=== PATIENT | female | born 1955 | race Caucasian/White ===

== ENCOUNTER 2022-07-23 07:36 | Emergency (ER) | payer OTHER, SELFPAY ==
[2022-07-23] VITALS (10 sets, daily range): BP systolic 126–159; BP diastolic 59–73; PULSE 60–74; RESP 16–24; TEMP 36.6; O2SAT 99–100; BMI 37.7
--- NOTE | 2022-07-23 08:01 | DI.CT.S_ITS ---
PROCEDURE: CT ANGIO HEAD AND NECK INDICATIONS: hx coil, balance, confusion x>24 hours TECHNIQUE: Pre-contrast 4.5 mm thick sections acquired from the foramen magnum to the vertex. After the administration of intravenous contrast, 1 mm thick sections acquired from the aortic arch through the [place]. Post-contrast 4.5 mm thick sections then re-acquired from the foramen magnum to the vertex. 3-dimensional kguowvt-lqcvxogpw-yoxyxhtfjp (MIP) and/or volume rendering reformats were acquired of the central intracranial vasculature and neck separately. For radiation dose reduction, the following was used: automated exposure control, adjustment of mA and/or kV according to patient size. COMPARISON: None. FINDINGS: Image quality: Excellent. BRAIN: CSF spaces: Ventricles are normal in size and shape. Basal cisterns are patent. No extra-axial fluid collections. Brain: No midline shift. No acute intracranial hemorrhage mass effect. Small hypodensity in the right basal ganglia is most likely a small subacute or chronic lacunar infarct. Additional small hypoattenuating foci are seen in the inferior right frontal lobe and posterior right periventricular white matter, possibly rib representing prior insult or chronic microvascular ischemic changes. Additional fdrf-av-iautiorf hypodensities in the periventricular and subcortical white matter are most likely related to chronic microvascular ischemic changes. There is relatively mild cerebral volume loss for age. Skull and face: Calvarium and facial bones appear intact, without suspicious lesions. Orbits appear normal. Sinuses: Sinuses and mastoids are clear. HEAD CT ANGIOGRAPHY: Anterior circulation: Intracranial internal carotid arteries demonstrate mild atherosclerotic calcifications without hemodynamically significant stenosis. The flow within the paired anterior cerebral arteries is normal and symmetric. Streak artifact is seen in the anterior temporal convexity related to presumed embolization coils. Nonspecific calcifications are seen along the right MCA near the embolization coils. The flow within the middle cerebral arteries is normal and symmetric. The anterior communicating artery is seen. No aneurysms are seen. Posterior circulation: Visualized portions of the vertebral arteries demonstrate normal caliber, and join to form a normal appearing basilar artery. Flow within the posterior cerebral arteries is normal and symmetric. No aneurysms are seen. NECK CT ANGIOGRAPHY: Carotid system: The great vessels demonstrate a conventional anatomy as they arise from the aortic arch. The origins of the common carotid arteries appear patent. The common carotid arteries demonstrate normal caliber and courses. Mild atherosclerotic calcifications are seen at the left carotid bifurcation without significant stenosis. The right carotid bifurcation is patent. The internal carotid arteries demonstrate normal calibers and courses. Posterior circulation: The origins of the vertebral arteries both appear widely patent. The more superior extracranial portions of both vertebral arteries also demonstrate normal courses and calibers. They join to form a normal appearing basilar artery. Soft tissues: Visualized neck soft tissues demonstrate no suspicious abnormalities. Bones: No suspicious bony lesions. Postsurgical changes are seen at the C5-6 level with solid osseous fusion across the disc space. Mild multilevel spondylosis. IMPRESSION: 1. No acute intracranial hemorrhage or focal loss of road matter differentiation identified. 2. Probable chronic lacunar infarct in the right basal ganglia. Chronic microvascular ischemic changes. 3. Embolization coil noted at the right temporal convexity. No intracranial aneurysm is seen. 4. No hemodynamically significant arterial stenosis or occlusion within the major arteries of the head or neck. Any quantitative measurements of stenosis were performed using NASCET criteria. Approved by: Reji Smith M.D. on 07/23/2022 at 9:16
[2022-07-23 08:06] LABS: Add Manual Diff / Slide Review NO; Basophils Absolute Auto 0 /uL (0-100); Basophils Percent Auto 0.4 % (0-2); Eosinophils Absolute Auto 100 /uL (0-450); Eosinophils Percent Auto 1.9 % (2-4); Hematocrit 31.5 % (36-46); Lymphocytes Absolute Auto 2200 /uL (1100-4500); Lymphocytes Percent Auto 27.9 % (25-40); Mean Corpuscular HGB Conc 31.9 % (30-36); Mean Corpuscular Hemoglobin 23.6 PG (26-34); Mean Corpuscular Volume 73.8 fL (80-100); Monocytes Absolute Auto 800 /uL (0-900); Monocytes Percent Auto 10.5 % (3-14); Neutrophils Absolute Auto 4700 /uL (1500-7000); Neutrophils Percent Auto 59.3 % (50-75); Platelet Count 275 X10^3/uL (150-400); Red Blood Cell Count 4.27 X10^6/uL (4.0-5.2); Red Cell Distribution Width 16.6 % (11.6-14.8); White Blood Cell Count 7.9 X10^3/uL (4.5-11.0)
[2022-07-23 08:17] LABS: Prothrombin Time 11.9 SECONDS (10.1-12.7)
[2022-07-23 08:20] LABS: PTT Partial Thromboplastin Tim 27 SECONDS (26-36)
[2022-07-23 08:27] LABS: Alanine Aminotransferase 19 IU/L (<35); Albumin 4.4 g/dL (3.5-5.0); Albumin Globulin Ratio 1.2 (1.0-2.8); Alkaline Phosphatase 118 U/L (38-126); Aspartate Aminotransferase 26 IU/L (14-36); BUN Creatinine Ratio 23.1 (6-22); Bilirubin Total 0.3 mg/dL (0.2-1.3); Blood Urea Nitrogen 15 mg/dL (7-17); Calcium 9.4 mg/dL (8.4-10.2); Carbon Dioxide 23 mmol/L (22-32); Chloride 106 mmol/L (98-107); Creatine Kinase 80 U/L (30-135); Estimated Glomerular Filt Rate > 60 mL/min (>60); Ethanol (ETOH) < 10 mg/dL; Globulin 3.7 g/dL (1.7-4.1); Glucose 95 mg/dL (80-110); HEMOLYSIS < 15 (0-50); Potassium 4.3 mmol/L (3.4-5.1); Sodium 139 mmol/L (137-145); Total Protein 8.1 g/dL (6.3-8.2)
[2022-07-23 08:35] LABS: Troponin I < 0.012 ng/mL (0.01-0.034)
--- NOTE | 2022-07-23 08:41 | ED.NEUROSD ---
HPI - Neuro Symptoms/Deficit General Chief Complaint: Neuro Symptoms/Deficit Stated Complaint: history of strokes,dizziness/confusion/balance Time Seen by Provider: 07/23/22 08:00 History of Present Illness HPI Narrative: Patient is a 66-year-old female history of ischemic stroke and aneurysm in 2020, hypertension hyperlipidemia presents today with waxing waning symptoms of some dizziness and balance issues. She reports that since her stroke she has had some bad days where she is over stressed over tired and symptoms get a little bit worse. 5 days ago she started having worsening symptoms she felt like she was drunk difficulty walking does not report any difficulty speaking. She said it lasted for couple of hours she rested it went away she felt better the next day and then she started having symptoms again. She again went home rested symptoms have not returned but encouraged by all of her family and providers to come to the ED for evaluation. She is on aspirin daily. She denies any fever or chills. No painful frequent urination. No chest pain although she has been having some chest discomfort she is thought to have coronary spasms she is been seen by Cardiology she took nitro last week for some chest discomfort but not having chest pain now. No cough or shortness of breath. On Anticoagulants: No Review of Systems Review of Systems ROS Unobtainable: All systems reviewed & are unremarkable except as noted in HPI and below Hematologic/Lymphatic On Anticoagulants: No Exam Initial Vital Signs Initial Vital Signs: Vital Signs Pulse Rate 72 07/23/22 07:53 Pulse Oximetry 100 07/23/22 07:53 GENERAL: Alert well-appearing very pleasant knowledgeable 66-year-old female and in no acute distress. HEENT: Head atraumatic,EOMI, pupils reactive, face symmetric, moist mucous membranes CARDIOVASCULAR: Regular rate and rhythm without murmurs, rubs or gallops. RESPIRATORY: Breath sounds equal bilaterally, no wheezes rales or rhonchi. ABDOMEN: Soft, nontender. Normoactive bowel sounds all 4 quadrants. No guarding or rebound. EXTREMITIES: Normal range of motion, no clubbing or edema. Neurovascularly intact NEUROLOGICAL: Alert and oriented x4.Normal gait and speech. Cranial nerves II through XII grossly intact. Good iuyvic-at-rrxe, good tcmt-oy-qips, strength equal bilaterally, no dysarthria or aphasia, sensation in tact to soft touch bilaterally, no visual changes, no facial droop SKIN: Warm, dry, no laceration, no petechiae, no rashes or lesions. Scores NIH Stroke Scale Level of Conciousness: Alert, keenly responsive Ask month/age: Answers both questions correctly. Open/close eyes, close hand: Performs both tasks correctly Best gaze horizontal: Normal Visual marcos: No visual loss Facial palsy: Normal symetrical movement Left arm drift: No drift for full 10 sec Right arm drift: No drift for full 10 sec Left leg drift: No drift for full 5 sec Right leg drift: No drift for full 5 sec Limb ataxia: Absent Sensory on face/arms/legs: Normal, no sensory loss Best language: No aphasia, normal Dysarthria: Normal Extinction or inattention: No abnormality Total NIH Stroke scale score: 0 Course Orders Ordered: ED Orders 07/23/22 08:00 Complete Blood Count AUTO DIFF Stat Comprehensive Metabolic Panel Stat Ethanol (ETOH) Stat PTT Partial Thromboplastin Abdoul Stat Prothrombin Time INR Stat Troponin & CK Cardiac Panel Stat 07/23/22 08:01 CT angio head and neck Stat 07/23/22 08:55 EKG-12 Lead Stat 07/23/22 09:17 Urinalysis and Microscopic Stat Urine Drug Screen, Rapid Stat Vital Signs Vital signs: Vital Signs - 8 hr 07/23/22 08:02 07/23/22 07:53 07/23/22 08:00 Temperature 97.8 F Pulse Rate 65 72 Respiratory Rate 16 Blood Pressure 159/73 H 159/73 H Pulse Oximetry 99 100 Oxygen Delivery Method Room Air 07/23/22 08:00 07/23/22 08:30 Temperature Pulse Rate 69 74 Respiratory Rate Blood Pressure Pulse Oximetry 99 100 Oxygen Delivery Method MDM - Neuro Symptoms/Deficit Lab Data 07/23/22 08:00 07/23/22 08:00 Labs: Lab Results 07/23/22 07/23/22 07/23/22 Range/Units 08:00 08:00 08:00 WBC 7.9 (4.5-11.0) X10^3/uL RBC 4.27 (4.0-5.2) X10^6/uL Hgb 10.0 L (12.0-16.0) g/dL Hct 31.5 L (36-46) % MCV 73.8 L (80-100) fL MCH 23.6 L (26-34) PG MCHC 31.9 (30-36) % RDW 16.6 H (11.6-14.8) % Plt Count 275 (150-400) X10^3/uL Neut % (Auto) 59.3 (50-75) % Lymph % (Auto) 27.9 (25-40) % [place] % (Auto) 10.5 (3-14) % Eos % (Auto) 1.9 L (2-4) % Baso % (Auto) 0.4 (0-2) % Neut # (Auto) 4700 (5107-1703) /uL Lymph # (Auto) 2200 (8596-1054) /uL [place] # (Auto) 800 (0-900) /uL Eos # (Auto) 100 (0-450) /uL Baso # (Auto) 0 (0-100) /uL PT 11.9 (10.1-12.7) SECONDS INR 1.0 (0.9-1.3) APTT 27 (26-36) SECONDS Sodium 139 (137-145) mmol/L Potassium 4.3 (3.4-5.1) mmol/L Chloride 106 (98-107) mmol/L Carbon Dioxide 23 (22-32) mmol/L BUN 15 (7-17) mg/dL Creatinine 0.65 (0.52-1.04) mg/dL Estimated GFR > 60 (>60) mL/min BUN/Creatinine Ratio 23.1 H (6-22) Glucose 95 (80-110) mg/dL Calcium 9.4 (8.4-10.2) mg/dL Total Bilirubin 0.3 (0.2-1.3) mg/dL AST 26 (14-36) IU/L ALT 19 (<35) IU/L Alkaline Phosphatase 118 (38-126) U/L Total Creatine Kinase 80 (30-135) U/L CK-MB (CK-2) TNP CK-MB (CK-2) Rel Index TNP Troponin I < 0.012 (0.01-0.034) ng/mL Total Protein 8.1 (6.3-8.2) g/dL Albumin 4.4 (3.5-5.0) g/dL Globulin 3.7 (1.7-4.1) g/dL Albumin/Globulin Ratio 1.2 (1.0-2.8) Urine Color Urine Appearance Urine pH (4.5-8.0) Ur Specific [place] (1.000-1.035) Urine Protein (Negative) Urine Glucose (UA) (Negative) g/dL Urine Ketones (NEGATIVE) Urine Occult Blood (Negative) Urine Nitrate (Negative) Urine Bilirubin (NEGATIVE) Urine Urobilinogen (0.2) E.U./dL Ur Leukocyte Esterase (NEGATIVE) Urine RBC (0-5/HPF) Urine WBC (0-5/HPF) Ur Squamous Epith Cells (0-5/HPF) Urine Bacteria (None) Ur Culture Indicated? U Opiates 300ng/mL cut (Negative) Ur Oxycodone Screen (Negative) Urine Methadone Screen (Negative) Ur Barbiturates Screen (Negative) U Tricyclic Antidepress (Negative) Ur Phencyclidine Scrn (Negative) Ur Amphetamines Screen (Negative) U Methamphetamines Scrn (Negative) Ur MDMA Scrn (Ecstasy) (Negative) U Benzodiazepines Scrn (Negative) Urine Cocaine Screen (Negative) U Marijuana (THC) Screen (Negative) Ethyl Alcohol < 10 ( - 10) mg/dL 07/23/22 07/23/22 Range/Units 09:17 09:17 WBC (4.5-11.0) X10^3/uL RBC (4.0-5.2) X10^6/uL Hgb (12.0-16.0) g/dL Hct (36-46) % MCV (80-100) fL MCH (26-34) PG MCHC (30-36) % RDW (11.6-14.8) % Plt Count (150-400) X10^3/uL Neut % (Auto) (50-75) % Lymph % (Auto) (25-40) % [place] % (Auto) (3-14) % Eos % (Auto) (2-4) % Baso % (Auto) (0-2) % Neut # (Auto) (0063-1292) /uL Lymph # (Auto) (8558-7972) /uL [place] # (Auto) (0-900) /uL Eos # (Auto) (0-450) /uL Baso # (Auto) (0-100) /uL PT (10.1-12.7) SECONDS INR (0.9-1.3) APTT (26-36) SECONDS Sodium (137-145) mmol/L Potassium (3.4-5.1) mmol/L Chloride (98-107) mmol/L Carbon Dioxide (22-32) mmol/L BUN (7-17) mg/dL Creatinine (0.52-1.04) mg/dL Estimated GFR (>60) mL/min BUN/Creatinine Ratio (6-22) Glucose (80-110) mg/dL Calcium (8.4-10.2) mg/dL Total Bilirubin (0.2-1.3) mg/dL AST (14-36) IU/L ALT (<35) IU/L Alkaline Phosphatase (38-126) U/L Total Creatine Kinase (30-135) U/L CK-MB (CK-2) CK-MB (CK-2) Rel Index Troponin I (0.01-0.034) ng/mL Total Protein (6.3-8.2) g/dL Albumin (3.5-5.0) g/dL Globulin (1.7-4.1) g/dL Albumin/Globulin Ratio (1.0-2.8) Urine Color Yellow Urine Appearance Clear Urine pH 8.0 (4.5-8.0) Ur Specific [place] 1.010 (1.000-1.035) Urine Protein Negative (Negative) Urine Glucose (UA) Negative (Negative) g/dL Urine Ketones Negative (NEGATIVE) Urine Occult Blood Negative (Negative) Urine Nitrate Negative (Negative) Urine Bilirubin Negative (NEGATIVE) Urine Urobilinogen 1.0 (0.2) E.U./dL Ur Leukocyte Esterase Negative (NEGATIVE) Urine RBC None seen (0-5/HPF) Urine WBC None seen (0-5/HPF) Ur Squamous Epith Cells None seen (0-5/HPF) Urine Bacteria None seen (None) Ur Culture Indicated? Cult not indicated U Opiates 300ng/mL cut Negative (Negative) Ur Oxycodone Screen Negative (Negative) Urine Methadone Screen Negative (Negative) Ur Barbiturates Screen Negative (Negative) U Tricyclic Antidepress Negative (Negative) Ur Phencyclidine Scrn Negative (Negative) Ur Amphetamines Screen Negative (Negative) U Methamphetamines Scrn Negative (Negative) Ur MDMA Scrn (Ecstasy) Negative (Negative) U Benzodiazepines Scrn Negative (Negative) Urine Cocaine Screen Negative (Negative) U Marijuana (THC) Screen Negative (Negative) Ethyl Alcohol ( - 10) mg/dL Imaging Data CTA - brain/neck: Radiologist's Impression: PROCEDURE:? CT ANGIO HEAD AND NECK ? INDICATIONS:? hx coil, balance, confusion x>24 hours ? TECHNIQUE:? Pre-contrast 4.5 mm thick sections acquired from the foramen magnum to the vertex.? After the administration of intravenous contrast, 1 mm thick sections acquired from the aortic arch through the [place].? Post-contrast 4.5 mm thick sections then re-acquired from the foramen magnum to the vertex.? 3-dimensional cgdicvx-okjverefl-ovoctvlfil (MIP) and/or volume rendering reformats were acquired of the central intracranial vasculature and neck separately. For radiation dose reduction, the following was used:? automated exposure control, adjustment of mA and/or kV according to patient size.? ? COMPARISON:? None. ? FINDINGS:? Image quality:? Excellent.? ? BRAIN:? CSF spaces:? Ventricles are normal in size and shape.? Basal cisterns are patent.? No extra-axial fluid collections.? ? Brain:? No midline shift.? No acute intracranial hemorrhage mass effect.? Small hypodensity in the right basal ganglia is most likely a small subacute or chronic lacunar infarct.? Additional small hypoattenuating foci are seen in the inferior right frontal lobe and posterior right periventricular white matter, possibly rib representing prior insult or chronic microvascular ischemic changes.? Additional afkp-dr-irqtaxoe hypodensities in the periventricular and subcortical white matter are most likely related to chronic microvascular ischemic changes.? There is relatively mild cerebral volume loss for age. ? Skull and face:? Calvarium and facial bones appear intact, without suspicious lesions.? Orbits appear normal.? ? Sinuses:? Sinuses and mastoids are clear.? ? HEAD CT ANGIOGRAPHY:? Anterior circulation:? Intracranial internal carotid arteries demonstrate mild atherosclerotic calcifications without hemodynamically significant stenosis.? The flow within the paired anterior cerebral arteries is normal and symmetric.? Streak artifact is seen in the anterior temporal convexity related to presumed embolization coils.? Nonspecific calcifications are seen along the right MCA near the embolization coils.? The flow within the middle cerebral arteries is normal and symmetric.? The anterior communicating artery is seen.? No aneurysms are seen.? ? Posterior circulation:? Visualized portions of the vertebral arteries demonstrate normal caliber, and join to form a normal appearing basilar artery.? Flow within the posterior cerebral arteries is normal and symmetric.? No aneurysms are seen.? ? NECK CT ANGIOGRAPHY:? Carotid system:? The great vessels demonstrate a conventional anatomy as they arise from the aortic arch.? The origins of the common carotid arteries appear patent.? The common carotid arteries demonstrate normal caliber and courses.? Mild atherosclerotic calcifications are seen at the left carotid bifurcation without significant stenosis.? The right carotid bifurcation is patent.? The internal carotid arteries demonstrate normal calibers and courses.? ? Posterior circulation:? The origins of the vertebral arteries both appear widely patent.? The more superior extracranial portions of both vertebral arteries also demonstrate normal courses and calibers.? They join to form a normal appearing basilar artery.? ? Soft tissues:? Visualized neck soft tissues demonstrate no suspicious abnormalities.? ? Bones:? No suspicious bony lesions.? Postsurgical changes are seen at the C5-6 level with solid osseous fusion across the disc space.? Mild multilevel spondylosis. ? ? IMPRESSION:? 1. No acute intracranial hemorrhage or focal loss of road matter differentiation identified. 2. Probable chronic lacunar infarct in the right basal ganglia.? Chronic microvascular ischemic changes. 3. Embolization coil noted at the right temporal convexity.? No intracranial aneurysm is seen. 4. No hemodynamically significant arterial stenosis or occlusion within the major arteries of the head or neck. ? Any quantitative measurements of stenosis were performed using NASCET criteria.? Approved by: Reji Smith M.D. on 07/23/2022 at 9:16? ECG Data Interpretation: Normal sinus rhythm rate 64 NH interval 172 QRS [address] changes no T-wave inversion MDM Narrative Medical decision making narrative: Patient 66-year-old female history of ischemic stroke in aneurysm presenting today 5 days after symptoms of not feeling right. She is had these symptoms before but never this bad. Today she has an NIH stroke scale of 0 she is speaking thinking clearly. CT angio shows chronic stroke in the [place] where she had her stroke previously. No evidence of intracranial hemorrhage. Blood work is overall reassuring. At this time recommend neurology follow-up do not think she needs a change any antiplatelet medication not convinced that this is a TIA. Discharge Plan Departure Patient Disposition: Home Clinical Impression: Transient cerebral ischemia Instructions: DI for Transient Ischemic Attack Activity Restrictions/Additional Instructions: *You have been diagnosed with sure if you had TIA or exacerbation of stroke symptoms *What to do: Strongly encourage you to follow-up and get established with Neurology. He will need a referral from your PCP. *Continue to take medications as directed Please continue aspirin 81mg *Follow up with your primary care provider in 2-3 days or call [phone] Ordonez in [place] or other Neurology in [facility] or [place] *Return to ER if you should have increased confusion numbness tingling weakness persistent vomiting dizziness balance [or] any new, worsening or concerning symptoms Referrals: Stacy Solares MD [Primary Care Provider] - Tee Ordonez MD [Non-Staff] - Stand Alone Forms: Patient Portal/API
[2022-07-23 09:23] LABS: Appearance Urine UA CLEAR; Bilirubin Urine UA NEGATIVE (NEGATIVE); Color Urine UA YELLOW; Glucose Urine UA NEGATIVE (Negative); Ketones Urine UA NEGATIVE (NEGATIVE); Leukocyte Esterase Urine UA NEGATIVE (NEGATIVE); Nitrite Urine UA NEGATIVE (Negative); Occult Blood Urine UA NEGATIVE (Negative); Protein Urine UA NEGATIVE (Negative)
[2022-07-23 09:27] LABS: Ur Creatinine Normal (Normal); Ur Specific Gravity Normal (Normal); Urine pH Normal (Normal)
[2022-07-23 09:28] LABS: UR Morphine/Opiate cutoff 300 Negative (Negative); Urine Amphetamines Negative (Negative); Urine Barbiturates Negative (Negative); Urine Benzodiazepines Negative (Negative); Urine Cocaine Negative (Negative); Urine MDMA Negative (Negative); Urine Methadone Negative (Negative); Urine Methamphetamines Negative (Negative); Urine Oxycodone Negative (Negative); Urine Phencyclidine Negative (Negative); Urine Tetrahydrocannabinol Negative (Negative); Urine Tricyclic Antidepressant Negative (Negative)
[2022-07-23 09:36] LABS: Bacteria Urine None Seen; Culture Indicated Urine Cult Not Indicated; RBC Urine None Seen (0-5/HPF); Squamous Epithelial Cell Urine None Seen (0-5/HPF); WBC Urine None Seen (0-5/HPF)
== END 2022-07-23 10:19 | disposition home or self-care (01) ==
PROVIDERS: Emergency Provider Emergency Medicine; PCP Family Medicine
DX: G45.9 Transient cerebral ischemic attack, unspecified (principal); R07.9 Chest pain, unspecified
CPT/HCPCS: 36415; 70496; 70498; 80053; 80305; 80320; 81001; 82550; 84484; 85025; 85610; 85730; 93005; 99284; Q9967

== ENCOUNTER → 2022-11-02 07:44 | Outpatient (CLI) | payer OTHER, SELFPAY ==
[2022-11-02 08:27] LABS: Add Manual Diff / Slide Review NO; Basophils Absolute Auto 0 /uL (0-100); Basophils Percent Auto 0.3 % (0-2); Eosinophils Absolute Auto 100 /uL (0-450); Eosinophils Percent Auto 1.7 % (2-4); Hematocrit 35.4 % (36-46); Hemoglobin 11.5 g/dL (12.0-16.0); Lymphocytes Absolute Auto 1700 /uL (1100-4500); Lymphocytes Percent Auto 30.8 % (25-40); Mean Corpuscular HGB Conc 32.5 % (30-36); Mean Corpuscular Hemoglobin 26.4 PG (26-34); Mean Corpuscular Volume 81.3 fL (80-100); Monocytes Absolute Auto 500 /uL (0-900); Monocytes Percent Auto 9.2 % (3-14); Neutrophils Absolute Auto 3200 /uL (1500-7000); Platelet Count 228 X10^3/uL (150-400); Red Blood Cell Count 4.36 X10^6/uL (4.0-5.2); White Blood Cell Count 5.5 X10^3/uL (4.5-11.0)
[2022-11-02 08:39] LABS: Alanine Aminotransferase 18 IU/L (<35); Albumin 4.2 g/dL (3.5-5.0); Albumin Globulin Ratio 1.2 (1.0-2.8); Alkaline Phosphatase 97 U/L (38-126); Aspartate Aminotransferase 22 IU/L (14-36); BUN Creatinine Ratio 22.9 (6-22); Bilirubin Total 0.6 mg/dL (0.2-1.3); Blood Urea Nitrogen 16 mg/dL (7-17); Calcium 9.8 mg/dL (8.4-10.2); Carbon Dioxide 25 mmol/L (22-32); Chloride 105 mmol/L (98-107); Cholesterol 147 mg/dL (140-199); Estimated Glomerular Filt Rate > 60 mL/min (>60); Globulin 3.5 g/dL (1.7-4.1); Glucose 103 mg/dL (80-110); HDL Cholesterol 55 mg/dL (40-60); HEMOLYSIS < 15 (0-50); LDL Cholesterol Calculated 67 mg/dL (<100); Potassium 3.9 mmol/L (3.4-5.1); Sodium 139 mmol/L (137-145); Total Protein 7.7 g/dL (6.3-8.2); Triglycerides 123 mg/dL (35-150)
[2022-11-05 10:44] LABS: Cholesterol, Total 155 mg/dL (100-199); HDL-Cholesterol 62 mg/dL (>39); HDL-Particle (Total) 39.1 umol/L (>=30.5); LDL Particle 803 nmol/L (<1000); LDL Size 20.8 nm (>20.5); LDL-Cholsterol 73 mg/dL (0-99); LP-IR Score 45 (<=45); Small LDL- Particle 208 nmol/L (<=527); Triglycerides 114 mg/dL (0-149)
== END ==
PROVIDERS: PCP Family Medicine; Referring Provider Nurse Practitioner; Visit Provider Nurse Practitioner
DX: I10 Essential (primary) hypertension (principal); E78.5 Hyperlipidemia, unspecified; R07.9 Chest pain, unspecified
CPT/HCPCS: 36415; 80053; 80061; 83704; 85025

== ENCOUNTER 2023-11-26 12:05 | Day surgery (SDC) | payer OTHER, SELFPAY ==
--- NOTE | 2023-11-26 | PATH_ITS ---
[facility] Accession Number: [id number] No. of containers..02 Tissue . 01 Material submitted: . PART A: stomach - STOMACH PART B: stomach - STOMACH POLYP . 01 Diagnosis: Part A: STOMACH: Gastric mucosa with mild chronic inflammation and features of reactive gastropathy. No Helicobacter organisms identified. No intestinal metaplasia, dysplasia, or malignancy identified. . Part B: STOMACH POLYP: Polypoid gastric mucosa with mild chronic inflammation and changes compatible with proton pump inhibitor effect. No Helicobacter organisms identified on H/E stain. No intestinal metaplasia, dysplasia, or malignancy identified. See comment. . Specimen Comments: There can be histologic overlap between changes due to proton pump inhibitor effect and an early fundic gland polyp. [facility] 11/28/2023 1323 Local . 01 Electronically signed: . Scar Harding MD, Pathologist NPI- [id number] . 01 Gross description: . Part A: STOMACH: Received in formalin is 1 fragment(s) of burger, soft tissue measuring 0.3 x 0.2 x 0.2 cm submitted entirely in 1 cassette(s) . Part B: STOMACH POLYP: Received in formalin are 2 fragment(s) of burger, soft tissue measuring 0.2 x 0.2 x 0.1 cm to 0.3 x 0.3 x 0.3 cm submitted entirely in 1 cassette(s) /BRUCE 11/28/2023 1323 Local . 01 Microscopic: . Part A: STOMACH: An immunohistochemical stain was performed to evaluate for Helicobacter organisms and is negative. The control stains appropriately. * This test was developed and the performance characteristics were validated by [facility]. It has not been cleared or approved by the Food and Drug Administration. . 01 Pathologist provided ICD-10: K29.50, K29.60, K31.7 . 01 CPT . 184657, 838988, [id number] Specimen Comment: A courtesy copy of this report has been sent to [phone] Performed at: [address] [id number] MD Scar Harding MD Phone: [phone]
--- NOTE | 2023-11-26 13:17 | PM.PREOP ---
Pre-operative Note Interval Note History & Physical reviewed/Exam performed by Physician: Yes Changes to H&P: No ASA Class (for procedural sedation): III
--- NOTE | 2023-11-26 13:17 | PM.OP.EGD ---
Operative Date/Time/Diagnoses Date of procedure: 11/26/23 Pre-op diagnosis: See indication and findings Procedure & Clinicians Study performed: EGD Indications: Chest pain with negative cardiac workup. Of note is the patient has had a gastric sleeve and has significant regurgitation at times Surgeon: Ant Alcaraz Procedure Notes Procedure in detail: After informed consent was obtained the patient was placed in left lateral decubitus position. The video upper scope was placed into the oropharynx and with the patient's help swallowed into the esophagus. The esophagus stomach and duodenum were carefully examined. On withdrawal, retroflexed view the GE junction was performed. The scope was removed. The patient tolerated the procedure well. Blood loss none Complications none Sedation mac Findings 1. Large esophageal diverticulum at approximately 30 cm from the incisors. Otherwise unremarkable 2. Squamocolumnar junction at 39 cm that was fairly wide open. Mild inflammation/erythema seen in to areas. No isa erosions seen 3. Small hernia with diaphragmatic hiatus at 44 cm making the hiatal hernia proximally 5 cm 4. Postsurgical changes of gastric sleeve noted Five. 15 mm soft polypoid lesion on the greater curvature before and during the antrum biopsies taken 6. Significant pre-pyloric inflammation biopsies taken to rule out Helicobacter 7. Normal duodenal bulb and sweep Given severity of her GE reflux with regurgitation and having a large esophageal diverticulum most likely from abnormal motility this could go along with to explaining her chest discomfort. She should follow up with Dr. Gates: To decide on his future therapy.
[2023-11-26 14:31] VITALS: BP 117/77; PULSE 72; RESP 28; TEMP 36.1; O2SAT 99
[2023-11-26 14:36] VITALS: BP 117/75; PULSE 72; RESP 30; O2SAT 100
[2023-11-26 14:41] VITALS: BP 120/69; PULSE 78; RESP 20; O2SAT 96
[2023-11-26 15:00] VITALS: BP 112/55; PULSE 71; RESP 25; TEMP 36.7; O2SAT 98
== END 2023-11-26 15:05 | disposition home or self-care (01) ==
PROVIDERS: PCP Family Medicine; Referring Provider Internal Medicine Gastroenterology; Visit Provider Internal Medicine Gastroenterology
PROC: 0DJ08ZZ Inspection of Upper Intestinal Tract, Via Natural or Artificial Opening Endoscopic (ICD-10-PCS; CPT 43239; principal; 2023-11-26 14:30)
DX: R07.9 Chest pain, unspecified (principal); K21.9 Gastro-esophageal reflux disease without esophagitis; Z98.84 Bariatric surgery status; K44.9 Diaphragmatic hernia without obstruction or gangrene; Q39.6 Congenital diverticulum of esophagus; K29.50 Unspecified chronic gastritis without bleeding; K31.7 Polyp of stomach and duodenum
CPT/HCPCS: 43239; J2704